=== PATIENT | female | born 1980 ===

== ENCOUNTER 2017-12-11 08:28 | Outpatient (CLI) | payer OTHER | END 2017-12-11 08:34 | disposition home or self-care (01) | LOC: SONOGRAMA 08:28 | DX: E04.2 Nontoxic multinodular goiter (principal) ==

== ENCOUNTER 2019-03-18 07:59 | Outpatient (CLI) | payer OTHER | END 2019-03-18 08:02 | disposition home or self-care (01) | LOC: SONOGRAMA 07:59 | DX: E04.2 Nontoxic multinodular goiter (principal) ==

== ENCOUNTER 2021-10-02 08:32 | Outpatient (CLI) | payer OTHER | END 2021-10-02 08:34 | disposition home or self-care (01) | LOC: RX STUDY 08:32 | DX: N97.9 Female infertility, unspecified (principal); N92.1 Excessive and frequent menstruation with irregular cycle ==